=== PATIENT | male | born 1985 | race Caucasian/White ===

== ENCOUNTER 2016-06-09 00:47 | Emergency (ER) | payer MEDICAID ==
--- NOTE | 2016-06-09 01:13 | Emergency Department Record ---
History of Present Illness - General Chief Complaint: Headache Migraine Stated Complaint: PORTILLO Time Seen by Provider: 06/09/16 01:11 Source: Patient Mode of Arrival: Ambulatory - History of Present Illness Initial Comments: The patient states he is here for the same thing from his last visit: he has sinus pressure and headache over the forehead with green sinus drainage. He was given zpack which helped briefly but the symptoms returned after he finished the antibiotic. He has nausea without vomiting, slight photophobia, no rashes stiff neck, slurred speech or unilateral weakness. MD Complaint: "Migraine" Onset/Timin -: Days(s) Onset Description: At rest Location: Facial, Frontal Severity scale (1-10): 8 Consistency: Constant, Getting worse Worsens With: Light Associated Symptoms: Nausea, Photophobia, Other Treatments Prior to Arrival: None - Related Data Previous Rx's Medication Instructions Recorded Omeprazole 20 mg PO DAILY #30 02/03/16 Azithromycin [Zithromax] 500 mg PO DAILY #5 tab 06/09/16 Allergies Allergy/AdvReac Type Severity Reaction Status Date / Time Fish Containing Products Allergy Severe ANAPHYLAXIS Verified 05/31/16 21:26 povidone-iodine Allergy Intermediate HIVES Verified 05/31/16 21:26 [From Betadine] soap [From Betadine] Allergy Intermediate HIVES Verified 05/31/16 21:26 sulfamethoxazole AdvReac Mild "does not Verified 05/31/16 21:26 [From Bactrim] work" trimethoprim [From Bactrim] AdvReac Mild "does not Verified 05/31/16 21:26 work" Penicillins AdvReac PT UNSURE Verified 05/31/16 21:26 OF REACTION Travel Screening - Travel/Exposure Within Last 30 Days Have you traveled within the last 30 days?: No - Travel Symptoms Symptom Screening: None Review of Systems Reviewed: No additional complaints except as noted below Constitutional: Reports: As per HPI. Denies: Chills, Fever, Malaise, Night sweats, Weakness, Weight change Eyes: Reports: As per HPI. Denies: Eye discharge, Eye pain, Photophobia, Vision change ENT: Reports: As per HPI. Denies: Congestion, Dental pain, Ear pain, Epistaxis , Hearing loss, Throat pain Respiratory: Reports: As per HPI. Denies: Cough, Dyspnea, Hemoptysis, Stridor, Wheezes Cardiovascular: Reports: As per HPI. Denies: Arrhythmia, Chest pain, Dyspnea on exertion, Edema, Murmurs, Orthopnea, Palpitations, Paroxysmal nocturnal dyspnea, Rheumatic Fever, Syncope Endocrine: Reports: As per HPI. Denies: Fatigue, Heat or cold intolerance, Polydipsia, Polyuria Gastrointestinal: Reports: As per HPI. Denies: Abdominal pain, Constipation, Diarrhea, Hematemesis, Hematochezia, Melena, Nausea, Vomiting Genitourinary: Reports: As per HPI. Denies: Dysuria, Frequency, Hematuria, Incontinence, Retention, Testicular pain, Testicular mass, Urgency Musculoskeletal: Reports: As per HPI. Denies: Arthralgia, Back pain, Gout, Joint swelling, Myalgia, Neck pain Skin: Reports: As per HPI. Denies: Bruising, Change in color, Change in hair/ nails, Lesions, Pruritus, Rash Neurological: Reports: As per HPI. Denies: Abnormal gait, Confusion, Headache, Numbness, Paresthesias, Seizure, Tingling, Tremors, Vertigo, Weakness Psychiatric: Reports: As per HPI. Denies: Anxiety, Auditory hallucinations, Depression, Homicidal thoughts, Suicidal thoughts, Visual hallucinations Hematological/Lymphatic: Reports: As per HPI. Denies: Anemia, Blood Clots, Easy bleeding, Easy bruising, Swollen glands Past Medical History - SOCIAL HISTORY Smoking Status: Light tobacco smoker (<10/day) Alcohol Use: Rare Drug Use: None - RESPIRATORY Hx Respiratory Disorders: No - CARDIOVASCULAR Hx Cardio Disorders: No - NEURO Hx Neuro Disorders: Yes Hx Headaches: Yes (Tension) - GI Hx GI Disorders: Yes Hx Reflux: Yes (gastritis) - Hx Genitourinary Disorders: No Comment:: varicocele - ENDOCRINE Hx Endocrine Disorders: No - MUSCULOSKELETAL Hx Musculoskeletal Disorders: No - PSYCH Hx Psych Problems: Yes Hx Anxiety: Yes Hx Depression: Yes - HEMATOLOGY/ONCOLOGY Hx Hematology/Oncology Disorders: No Family Medical History Any Significant Family History?: Yes Hx Cancer: Mother, Grandparents Hx Heart Disease: Grandparents Hx HTN: Father, Mother Physical Exam - General General Appearance: Alert, Oriented x3, Cooperative, Mild distress - Head Head exam: Normal inspection - Eye Eye exam: Normal appearance, PERRL Pupils: Normal accommodation - ENT ENT exam: Normal exam, Mucous membranes moist, Normal external ear exam, Normal orophraynx, TM's normal bilaterally Ear exam: Normal external inspection. negative: External canal tenderness Nasal Exam: Normal inspection, Sinus tenderness (frontal bilateral). negative: Discharge Mouth exam: Normal external inspection, Tongue normal Teeth exam: Normal inspection. negative: Dental caries Throat exam: Normal inspection. negative: Tonsillar erythema, Tonsillar exudate - Neck Neck exam: Normal inspection, Full ROM. negative: Tenderness - Respiratory Respiratory exam: Normal lung sounds bilaterally. negative: Respiratory distress - Cardiovascular Cardiovascular Exam: Regular rate, Normal rhythm, Normal heart sounds - GI/Abdominal GI/Abdominal exam: Soft, Normal bowel sounds. negative: Tenderness - Rectal Rectal exam: Deferred - exam: Deferred - Extremities Extremities exam: Normal inspection, Full ROM, Normal capillary refill. negative: Tenderness - Back Back exam: Reports: Normal inspection, Full ROM. Denies: Muscle spasm, Rash noted, Tenderness - Neurological Neurological exam: Alert, Normal gait, Oriented X3, Reflexes normal - Psychiatric Psychiatric exam: Normal affect, Normal mood - Skin Skin exam: Dry, Intact, Normal color, Warm Course Vital Signs 06/09/16 00:56 Temperature 97.9 F Pulse Rate [ 59 L Pulse Ox Probe] Respiratory 16 Rate Blood Pressure 105/77 [Left Arm] Pulse Ox 97 - Reevaluation(s) Reevaluation #1: Patient now sstates he does no need the IV or headache meds anymore but wishes the antibiotic. Will cancel those orders. 06/09/16 01:49 Medical Decision Making - Management Options MDM Management: No Additional Work-up Planned Disposition Disposition: Discharge Clinical Impression: Sinusitis, acute frontal Qualifiers: Recurrence: not specified as recurrent Qualified Code(s): J01.10 - Acute frontal sinusitis, unspecified Sinusitis Qualifiers: Sinusitis location: unspecified location Chronicity: acute Recurrence: non- recurrent Qualified Code(s): J01.90 - Acute sinusitis, unspecified Disposition: Home, Self-Care Condition: (1) Good Instructions: Sinusitis (ED) Additional Instructions: Take antibiotics until gone. Push fluids. Follow up with PCP as needed. Prescriptions: Azithromycin [Zithromax] 500 mg PO DAILY #5 tab Forms: Patient Portal Access
[2016-06-09] MEDS ORDERED: AZITHROMYCIN 500 MG TABLET PO ONE (01:47)
[2016-06-09] MEDS ORDERED: DIPHENHYDRAMINE HCL IV 50 MG/ML VIAL IVP ONE (01:47)
[2016-06-09] MEDS ORDERED: METOCLOPRAMIDE HCL 10 MG/2 ML VIAL IVP ONE (01:47)
[2016-06-09] MEDS ORDERED: 0.9 % SODIUM CHLORIDE 1,000 ML BAG IV ONE (01:47)
[2016-06-09] MEDS ORDERED: ACETAMINOPHEN 500 MG TABLET PO ONE (02:02)
== END 2016-06-09 02:34 | disposition home or self-care (01) ==
LOC: ER 00:47
DX: J01.10 Acute frontal sinusitis, unspecified (principal); R11.0 Nausea; H53.149 Visual discomfort, unspecified; R51 Headache
CPT/HCPCS: 99282

== ENCOUNTER 2016-06-27 15:16 | Emergency (ER) | payer MEDICAID ==
[2016-06-27 15:30] LABS: BASO % 0.3 % (0-6); EOS % 0.5 % (0-6); GRAN % 61.4 % (47-80); HEMATOCRIT 46.2 % (42.0-52.0); HEMOGLOBIN 16.4 gm/dl (14.0-18.0); LYMPH % 26.8 % (16-45); MEAN CELL VOLUME 82.2 fl (81-97); MEAN CORPUSCULAR HEMOGLOBIN 29.2 pg (27-33); MEAN CORPUSCULAR HGB CONC 35.5 g/dl (32-36); MEAN PLATELET VOLUME 9.7 fl (7.4-10.4); PLATELET COUNT 263 K/uL (130-400); RED BLOOD COUNT 5.62 M/uL (4.40-5.70); RED CELL DISTRIBUTION WIDTH 13.1 % (11.5-14.5); WHITE BLOOD COUNT W/O DIFF 6.3 K/uL (4.2-12.2)
[2016-06-27 15:45] LABS: AMMONIA 18.7 umol/L (9-30)
[2016-06-27 15:48] LABS: BLOOD UREA NITROGEN 8 mg/dL (9-20); CREATININE 0.9 mg/dL (0.66-1.25); EST GLOMERULAR FILTRATION RATE > 60 ml/min; GLUCOSE,RANDOM 97 mg/dL (70-110)
[2016-06-27 15:49] LABS: ACETAMINOPHEN < 10.0 ug/mL (10.0-30.0); ALBUMIN 5.4 gm/dL (3.5-5.0); ALKALINE PHOSPHATASE 76 U/L (38-126); ALT/SGPT 21 U/L (21-72); AST/SGOT 33 U/L (17-59); SALICYLATE < 1.0 mg/dL (2.8-20.0); TOTAL PROTEIN 8.5 gm/dL (6.3-8.2)
--- NOTE | 2016-06-27 16:12 | Emergency Department Record ---
History of Present Illness - General Chief Complaint: Altered Mental Status Stated Complaint: ALTERED MENTAL STATE Time Seen by Provider: 06/27/16 15:21 Source: Patient, RN notes reviewed Mode of Arrival: Stretcher - History of Present Illness Initial Comments: patient found laying on the ground behind the hospital up against the construction fence and and he was breathing upon my arrival and when I touched him he wake up with a start and said where am I. He was paranoid and said I didn 't do anything but he could not tell me his name and he repeated where am I. He stood up for me and walked to a stretcher that was being brought out. He calmed down in the ED in 5 minutes and a bystander animal nurse said he saw him having a verbal argument with a women in the front of the hospital and the woman 's name is Meghna Hoyos. She told me she was bring him to the hospital and he was distraught under stress because of his family and he had a panic attack breathing fast and numbness and chest pain. He lost who he was about 15 minutes from the hospital and while he was in the restaurant before losing is memory he was having a panic attack and he told Meghna he needed to go to the hospital. He has panic attacks frequently. (two times a month) . Than he gets migraines. -: Unknown Severity: Severe - Marguerite Coma Scale Eye Response: (4) Open spontaneously Motor Response: (6) Obeys commands Verbal Response: (4) Confused conversation Marguerite Total: 14 - Related Data Previous Rx's Medication Instructions Recorded Omeprazole 20 mg PO DAILY #30 02/03/16 Azithromycin [Zithromax] 500 mg PO DAILY #5 tab 06/09/16 Hydroxyzine Pamoate [Vistaril] 25 mg PO Q6H #10 capsule 06/27/16 Allergies Allergy/AdvReac Type Severity Reaction Status Date / Time Fish Containing Products Allergy Severe ANAPHYLAXIS Verified 05/31/16 21:26 povidone-iodine Allergy Intermediate HIVES Verified 05/31/16 21:26 [From Betadine] soap [From Betadine] Allergy Intermediate HIVES Verified 05/31/16 21:26 sulfamethoxazole AdvReac Mild "does not Verified 05/31/16 21:26 [From Bactrim] work" trimethoprim [From Bactrim] AdvReac Mild "does not Verified 05/31/16 21:26 work" Penicillins AdvReac PT UNSURE Verified 05/31/16 21:26 OF REACTION Travel Screening - Travel/Exposure Within Last 30 Days Have you traveled within the last 30 days?: No Review of Systems ROS unobtainable: Due to mental status Past Medical History - SOCIAL HISTORY Smoking Status: Light tobacco smoker (<10/day) Alcohol Use: None Drug Use: None - RESPIRATORY Hx Respiratory Disorders: No - CARDIOVASCULAR Hx Cardio Disorders: No - NEURO Hx Neuro Disorders: Yes Hx Headaches: Yes (Tension) - GI Hx GI Disorders: Yes Hx Reflux: Yes (gastritis) - Hx Genitourinary Disorders: No Comment:: varicocele - ENDOCRINE Hx Endocrine Disorders: No - MUSCULOSKELETAL Hx Musculoskeletal Disorders: No - PSYCH Hx Psych Problems: Yes Hx Anxiety: Yes Hx Depression: Yes - HEMATOLOGY/ONCOLOGY Hx Hematology/Oncology Disorders: No Family Medical History Any Significant Family History?: Yes Hx Cancer: Mother, Grandparents Hx Heart Disease: Grandparents Hx HTN: Father, Mother Physical Exam - General General Appearance: Alert, Oriented x3, Cooperative, No acute distress - Head Head exam: Normal inspection - Eye Eye exam: Normal appearance, PERRL Pupils: Normal accommodation - ENT ENT exam: Normal exam, Mucous membranes moist, Normal external ear exam, Normal orophraynx, TM's normal bilaterally Ear exam: Normal external inspection. negative: External canal tenderness Nasal Exam: Normal inspection. negative: Discharge, Sinus tenderness Mouth exam: Normal external inspection, Tongue normal Teeth exam: Normal inspection. negative: Dental caries Throat exam: Normal inspection. negative: Tonsillar erythema, Tonsillar exudate - Neck Neck exam: Normal inspection, Full ROM. negative: Tenderness - Respiratory Respiratory exam: Normal lung sounds bilaterally. negative: Respiratory distress - Cardiovascular Cardiovascular Exam: Regular rate, Normal rhythm, Normal heart sounds - GI/Abdominal GI/Abdominal exam: Soft, Normal bowel sounds. negative: Tenderness - Rectal Rectal exam: Deferred - exam: Deferred - Extremities Extremities exam: Normal inspection, Full ROM, Normal capillary refill. negative: Tenderness - Back Back exam: Reports: Normal inspection, Full ROM. Denies: Muscle spasm, Rash noted, Tenderness - Neurological Neurological exam: Alert, Normal gait, Oriented X3, Reflexes normal - Psychiatric Psychiatric exam: Normal affect, Normal mood - Skin Skin exam: Dry, Intact, Normal color, Warm Course Vital Signs 01/20/17 15:23 Temperature 98.5 F Pulse Rate 106 H Respiratory 36 H Rate Blood Pressure 115/87 Pulse Ox 99 Medical Decision Making - Data Complexity MDM Data: Labs Ordered and/or Reviewed, X-Ray Ordered and/or Reviewed (chest negative), EKG Ordered and/or Reviewed (No acute changes, NSR, ) - Lab Data Result diagrams: 06/27/16 15:20 06/27/16 15:20 Lab Results 06/27/16 06/27/16 06/27/16 Range/Units 15:20 15: 15:20 WBC 6.3 (4.2-12.2) K/uL RBC 5.62 (4.40-5.70) M/uL Hgb 16.4 (14.0-18.0) gm/dl Hct 46.2 (42.0-52.0) % MCV 82.2 (81-97) fl MCH 29.2 (27-33) pg MCHC 35.5 (32-36) g/dl RDW 13.1 (11.5-14.5) % Plt Count 263 (130-400) K/uL MPV 9.7 (7.4-10.4) fl Gran % 61.4 (47-80) % Lymphocytes % 26.8 (16-45) % Monocytes % 11.0 H (0-9) % Eosinophils % 0.5 (0-6) % Basophils % 0.3 (0-6) % PTT 29.60 (24.5-39.1) SECONDS Sodium 142 (136-145) mmol/L Potassium 4.2 (3.5-5.1) mmol/L Chloride 102 (98-107) mmol/L Carbon Dioxide 17.0 L (22-30) mmol/L Anion Gap 23.0 H (7-16) BUN 8 L (9-20) mg/dL Creatinine 0.9 (0.66-1.25) mg/dL Estimated GFR > 60 ml/min Random Glucose 97 (70-110) mg/dL Calcium 10.0 (8.5-10.1) mg/dL Total Bilirubin 0.60 (0.2-1.3) mg/dL Direct Bilirubin 0.0 (0-0.3) mg/dL AST 33 (17-59) U/L ALT 21 (21-72) U/L Alkaline Phosphatase 76 (38-126) U/L Ammonia 18.7 (9-30) umol/L Total Protein 8.5 H (6.3-8.2) gm/dL Albumin 5.4 H (3.5-5.0) gm/dL Salicylates < 1.0 L (2.8-20.0) mg/dL Acetaminophen < 10.0 L (10.0-30.0) ug/mL Ethyl Alcohol 0.000 (0-0.010) g/dL Disposition Clinical Impression: Panic Attack, Memory loss, Conversion disorder, Stress at home Disposition: Home, Self-Care Condition: (1) Good Instructions: Panic Disorder (ED) Additional Instructions: follow up with family Dr. Carlton on thursday [id number] Prescriptions: Hydroxyzine Pamoate [Vistaril] 25 mg PO Q6H #10 capsule Forms: Patient Portal Access Time of Disposition: 17:31
[2016-06-27 16:20] LABS: URINE APPEARANCE CLEAR; URINE BILIRUBIN NEGATIVE (NEGATIVE); URINE BLOOD NEGATIVE (NEGATIVE); URINE COLOR YELLOW; URINE GLUCOSE (UA) NEGATIVE (NEGATIVE); URINE KETONE NEGATIVE (NEGATIVE); URINE LEUKOCYTE ESTERASE NEGATIVE (NEGATIVE); URINE NITRITE NEGATIVE (NEGATIVE); URINE PROTEIN NEGATIVE (NEGATIVE); URINE UROBILINOGEN 0.2 E.U./dL (0.20 - 1.00)
[2016-06-27 16:24] LABS: AMPHETAMINE SCREEN URINE NOT DETECTED; BARBITURATE SCREEN URINE NOT DETECTED; BENZODIAZEPINE SCREEN URINE NOT DETECTED; COCAINE SCREEN URINE NOT DETECTED; METHADONE SCREEN URINE NOT DETECTED; METHAMPHETAMINE SCREEN NOT DETECTED; OPIATE SCREEN URINE NOT DETECTED; OXYCODONE SCREEN URINE NOT DETECTED; PHENCYCLIDINE SCREEN URINE NOT DETECTED; PROPOXYPHENE SCREEN URINE NOT DETECTED; THC SCREEN URINE DETECTED; TRICYCLIC ANTIDEPRESSANT SCRN NOT DETECTED
[2016-06-27] MEDS ORDERED: HYDROXYZINE PAMOATE 25 MG CAPSULE PO ONE (17:27)
--- NOTE | 2016-07-02 14:19 | RADIOLOGY REPORT ---
EXAM: CHEST, FRONTAL VIEW HISTORY: DIFFICULTY BREATHING. TECHNIQUE: Upright portable view of the chest was obtained. Comparison: 01/07/15 chest. FINDINGS: The heart size is normal. The lungs are clear. No pneumothorax. IMPRESSION: NEGATIVE CHEST EXAMINATION. JOB NUMBER: [id number] [facility]
--- NOTE | 2016-07-02 15:00 | CT SCAN REPORT ---
EXAM: CT OF THE BRAIN HISTORY: CONFUSION. TECHNIQUE: CT of the brain without contrast was obtained. Comparison: 05/31/16 CT. FINDINGS: The globes are intact. The paranasal sinuses and mastoid air cells are unremarkable. No displaced or depressed skull fracture. No intra or extraaxial hemorrhage. CT is limited for evaluation of acute infarct. No CT evidence for large or territorial acute infarct. No mass or midline shift. IMPRESSION: NEGATIVE CT OF THE BRAIN EXAMINATION. JOB NUMBER: [id number] [facility]
== END 2016-06-27 18:00 | disposition home or self-care (01) ==
LOC: ER 15:16
DX: F41.0 Panic disorder [episodic paroxysmal anxiety] (principal); F43.0 Acute stress reaction; F44.0 Dissociative amnesia; R07.9 Chest pain, unspecified; R20.0 Anesthesia of skin; F17.210 Nicotine dependence, cigarettes, uncomplicated; Z63.9 Problem related to primary support group, unspecified
CPT/HCPCS: 99284 ×2; 82140; 85025; 85730; 80076; 80048; 36416; 81003; 71010; 70450; 93005; 93010; G0480 ×3; G0477; 80320; 80329